=== PATIENT | female | born 1945 | race Caucasian/White ===

== ENCOUNTER 2016-06-22 06:35 | Inpatient (IN) | payer OTHER, MEDICARE ==
[2016-06-22] VITALS (29 sets, daily range): BP systolic 107–152; BP diastolic 54–66; PULSE 55–82; RESP 16–80; Ht 162.6 cm; Wt 85.0 kg
[~2016-06-22] VITALS: Ht 162.6 cm; Wt 85.0 kg
[~2016-06-22 06:35] MED LIST: CEFAZOLIN 2 GM/50 ML (PMX) 50 ML IVPB ONE
--- NOTE | 2016-06-22 06:43 | HPN ---
Date/Time of Note Date/Time of Note DATE: 06/22/16 TIME: 06:42 Interval H&P Admission Note Pt. seen H&P reviewed: No system changes KRISTAL GAGNON MD Jun 22, 2016 06:42
[2016-06-22] MEDS ORDERED: DESFLURANE 15 MIN ONE (07:00)
[2016-06-22] MEDS ORDERED: CEFAZOLIN 1 GM INJ ONE (07:00)
--- NOTE | 2016-06-22 07:35 | PREOPHP ---
DATE OF ADMISSION: 06/22/2016 HISTORY OF PRESENT ILLNESS: Misty Das is a 70-year-old female scheduled for elec tive right total hip arthroplasty by Dr. Louis at [facility]. The patient has h ad increasing symptoms of right hip pain secondary to osteoarthritis and degenerative disease, intra ctable pains over the last few weeks. The patient has consulted a banana loader at [facility], and she has been cleared for surgery. PAST MEDICAL HISTORY: 1. Type 2 diabetes mellitus. 2. Systemic hypertension. 3. Hyperlipidemia. 4. Anxiety disorder. SURGICAL HISTORY: 1. Hysterectomy. 2. Tonsillectomy and adenoidectomy. 3. Blepharoplasty. 4. Right wrist cyst excision. 5. Hyperlipidemia. MEDICATIONS: 1. Metformin XR one gram b.i.d. 2. Starlix 120 mg before meals. 3. Toujeo ____ insulin 30 units at bedtime. 4. Humalog sliding scale pre-meal. 5. Crestor 10 mg daily. 6. Wellbutrin SR 150 mg daily. 7. Zoloft 50 mg daily. 8. Xanax 2.5 mg b.i.d. p.r.n. SOCIAL HISTORY: Former smoker, discontinued in 1975. No ETOH. REVIEW OF SYSTEMS: CONSTITUTIONAL: No fever or chills. Moderate weight loss over the last one year, voluntary. No ni ght sweats, no fatigue. CARDIOVASCULAR: No chest pains, no orthopnea, no PND, no edema of extremities, no palpitations, no claudication symptoms, no history of syncope. GI: No abdominal pain. No nausea or vomiting, no diarrhea, no melena or hematochezia. MUSCULOSKELETAL: Intractable right hip pain as noted in history of present illness. HEMATOLOGICAL: No bruising, no history of transfusions, no lymphadenopathy. NEUROLOGIC: No headaches, no weakness, no seizure disorder, no history of CVA. ALLERGIES: NO KNOWN DRUG ALLERGIES. PHYSICAL EXAMINATION: VITAL SIGNS: Blood pressure 114/70, pulse rate ____ and regular, respiratory rate 16 per minute. Afebrile. Weight 190 pounds. Height 5 feet 4 inches. HEAD: Normocephalic and atraumatic. HEENT: Pupils equal and reactive to light bilaterally. Extraocular movements intact. No scleral i cterus. No nasal deformity. Oropharynx is clear. External ears are normal. NECK: Supple, no bruit, no adenopathy. LUNGS: Clear to auscultation bilaterally. HEART: Regular rate, I/ aortic systolic murmur. No gallop or rub. No heave. ABDOMEN: No distention. Soft, nontender, no organomegaly, no palpable mass. EXTREMITIES: No edema. No cyanosis. There are 2+ pedal pulses bilaterally. SKIN: No rash. SPINE: No deformity or tenderness. NEUROLOGICAL: Alert and oriented. Adequate strength in all extremities. No focal changes. ASSESSMENT: 1. Significant progressive degenerative disease of the right hip with intractable pain. 2. Type 2 diabetes mellitus. 3. Systemic hypertension. 4. Hyperlipidemia. 5. Anxiety disorder. The patient consulted her banana loader at [facility] in [place]. Cardiology consultation report has been forwarded to Dr. Louis. The patient noted to have mild to moderate aortic regurgitation on echocardiogram- asymptomatic. Normal myocardial perfusion scan per banana loader. PLAN: Review preoperative laboratory tests and chest x-ray prior to final clearance for surgery. Advised to discontinue metformin 1 day prior to surgery. Advised to decrease Toujeo to 10 units on 06/21/2016 if her ____ blood sugar is greater than 150. N o Toujeo if glucose below 150, as the patient will be n.p.o. on 06/22/2016. The patient is at moderate cardiovascular risk for monitored surgery. No additional optimization fr om cardiovascular standpoint. ADDENDUM: I am requesting that Dr. David Cardona follow the patient postoperative at [facility]. DICTATED BY DR.JAGANATH AMAYA FOR KRISTAL LOUIS MD Dictated By: KRISTAL LOUIS MD CG/NTS Conf#: [id number] DID#: [id number] CC: DAVID CARDONA MD; JAVED AMAYA MD;*EndCC*
[2016-06-22] MEDS ORDERED: CARV80CP5 PO (07:37)
[2016-06-22] MEDS ORDERED: AMLO-147 PO (07:37)
[2016-06-22] MEDS ORDERED: RAMI10CA35 PO (07:38)
[2016-06-22] MEDS ORDERED: METF-406 PO (07:40)
[2016-06-22] MEDS ORDERED: INSU300I SQ (07:41)
[2016-06-22] MEDS ORDERED: INSU200I SQ (07:42)
[2016-06-22] MEDS ORDERED: CRES10 PO (07:43)
[2016-06-22] MEDS ORDERED: NATE120T PO (07:43)
[2016-06-22] MEDS ORDERED: BUPR150T18 PO (07:44)
[2016-06-22] MEDS ORDERED: SERT50TA6 PO (07:45)
[2016-06-22] MEDS ORDERED: ALPR0.25 PO (07:45)
[2016-06-22] MEDS ORDERED: ASPI-664 PO (07:47)
[2016-06-22] MEDS ORDERED: OMEG-53 PO (07:48)
[2016-06-22] MEDS ORDERED: CHOL100062 PO (07:48)
[2016-06-22] MEDS ORDERED: CALC600T11 PO (07:49)
[2016-06-22] MEDS ORDERED: VITA150T PO (07:50)
[2016-06-22] MEDS ORDERED: ASCO500C7 PO (07:50)
[2016-06-22] MEDS ORDERED: BIOT1CAP3 PO (07:51)
[2016-06-22] MEDS ORDERED: LACT1CAP57 PO (07:51)
[2016-06-22] MEDS ORDERED: GABAPENTIN 300 MG CAP PO ONE (07:59)
[2016-06-22] MEDS ORDERED: oxyCODONE (CR) 10 MG TAB [oxyCONTIN] PO ONE (07:59)
[2016-06-22] MEDS ORDERED: traMADol 50 MG TAB PO ONE (07:59)
[2016-06-22] MEDS ORDERED: DEXAMETHASONE 1 MG TAB PO ONE (08:00)
[2016-06-22] MEDS ORDERED: TRANEXAMIC ACID 1,000 MG in SOD CHLORIDE 0.9% 100 ML IVPB ONE (08:00)
[2016-06-22] MEDS ORDERED: BUPIVACAINE 0.5% (SDV) 30 ML, morphine SULFATE (PF) 8 MG, EPINEPHrine 0.3 MG, KETOROLAC... IRR SCH ×7 (08:03)
[2016-06-22] MEDS ORDERED: CEFAZOLIN 2 GM/50 ML (PMX) 50 ML IVPB ONE (08:30)
[2016-06-22] MEDS ORDERED: morphine SULFATE/PF (10 MG/10 ML) INJ ONE (09:37)
[2016-06-22] MEDS ORDERED: CA CHLORIDE 10% 10 ML SYRINGE ONE (09:45)
[2016-06-22] MEDS ORDERED: THROMBIN 5000 UNIT VIAL ONE (09:45)
[2016-06-22] MEDS ORDERED: TRANEXAMIC ACID 1,000 MG in SOD CHLORIDE 0.9% 100 ML IV ONE ×2 (10:00→12:30)
[2016-06-22] MEDS ORDERED: ROCURONIUM 50 MG INJ ONE (10:13)
[2016-06-22] MEDS ORDERED: LIDOCAINE 2% (SDV) 5 ML INJ ONE (10:13)
[2016-06-22] MEDS ORDERED: SUCCINYLCHOLINE CHLORIDE 100 MG/5 ML SYG IV ONE (10:13)
[2016-06-22] MEDS ORDERED: NEOSTIGMINE 3 MG/3 ML SYRINGE ONE (10:13)
[2016-06-22] MEDS ORDERED: PROPOFOL 20 ML ONE (10:13)
[2016-06-22] MEDS ORDERED: GLYCOPYRROLATE 0.4 MG INJ ONE (10:13)
[2016-06-22] MEDS ORDERED: POLYMYXIN/BACITRACIN 1L IRRIG ONE (10:28)
[2016-06-22] MEDS ORDERED: POLYMYXIN/BACITRACIN 1L IRRIG IRR ONE (10:28)
[2016-06-22] MEDS ORDERED: ONDANSETRON 4 MG INJ IV PRN ×2 (10:30→12:00)
[2016-06-22] MEDS ORDERED: HYDROmorphONE (0.2 MG/ML) 10ML SYG IV PRN ×3 (10:30)
[2016-06-22] MEDS ORDERED: METOCLOPRAMIDE 10 MG INJ IV PRN (10:30)
[2016-06-22] MEDS ORDERED: DIPHENHYDRAMINE 50 MG INJ IV PRN ×2 (10:30→12:00)
[2016-06-22] MEDS ORDERED: MEPERIDINE 25 MG INJ IV PRN (10:30)
[2016-06-22] MEDS ORDERED: FENTAnyl 50 MCG/ML VIAL IV PRN (10:30)
[2016-06-22] MEDS ORDERED: KETOROLAC 15 MG INJ IV PRN (12:00)
[2016-06-22] MEDS ORDERED: morphine 2 MG INJ IV PRN (12:00)
[2016-06-22] MEDS ORDERED: MAGNESIUM HYDROXIDE 30ML CUP PO PRN (12:00)
[2016-06-22] MEDS ORDERED: OXYCODONE/ACETAMINOPHEN (5/325) TAB PO PRN ×2 (12:00)
[2016-06-22] MEDS ORDERED: ACETAMINOPHEN 500 MG TAB PO PRN (12:00)
[2016-06-22] MEDS ORDERED: ZOLPIDEM 5 MG TAB PO PRN (12:00)
[2016-06-22] MEDS: DEXAMETHASONE 2 MG TAB PO SCH ×3 (12:00→23:54)
[2016-06-22] MEDS ORDERED: morphine 4 MG/ML VIAL IV PRN (12:00)
[2016-06-22] MEDS ORDERED: BETHANECHOL 25 MG TAB PO PRN (12:00)
[2016-06-22] MEDS: CEFAZOLIN 1 GM/50 ML (PMX) 50 ML IVPB SCH ×2 (12:00→19:37)
[2016-06-22] MEDS ORDERED: CEFAZOLIN 1 GM/50 ML (PMX) 50 ML IVPB ONE (12:16)
[2016-06-22 12:25] LABS: ADD SCAN DIFF NO
[2016-06-22 12:26] LABS: BASOPHILS % 0.3 % (0.0-2.0); EOSINOPHILS # 0.1 10^3/ul (0.0-0.5); EOSINOPHILS % 0.6 % (0.0-7.0); HEMATOCRIT 33.3 % (37.0-47.0); HEMOGLOBIN 10.9 g/dl (12.0-16.0); LYMPHOCYTES # 1.4 10^3/ul (0.8-2.9); MEAN CORPUSCULAR HEMOGLOBIN 29.9 pg (29.0-33.0); MEAN CORPUSCULAR HGB CONC 32.7 g/dl (32.0-37.0); MEAN CORPUSCULAR VOLUME 91.2 fl (82.0-101.0); MEAN PLATELET VOLUME 10.5 fl (7.4-10.4); MONOCYTE # 0.3 10^3/ul (0.3-0.9); MONOCYTES % 2.9 % (0.0-11.0); NEUTROPHIL # 8.1 10^3/ul (1.6-7.5); NEUTROPHILS % 80.9 % (39.0-77.0); PLATELET COUNT 216 10^3/UL (140-415); RED BLOOD COUNT 3.65 10^6/ul (4.20-5.40); RED CELL DISTRIBUTION WIDTH 13.4 % (11.5-14.5)
--- NOTE | 2016-06-22 12:34 | OPR ---
DATE OF OPERATION: 06/22/2016 SURGEON: Kristal Louis MD LUMBER SALVAGER: Kyle Garrett MD PREOPERATIVE DIAGNOSIS: Right hip primary osteoarthritis. POSTOPERATIVE DIAGNOSIS: Right hip primary osteoarthritis. OPERATION PERFORMED: Right total hip arthroplasty. Case Therapist surgeon, Kyle Garrett MD, was asked to be present at my request as a result of significa nt surgical complexity associated with this procedure, including positioning of the extremity, manip ulation and protection of the neurovascular structures. In my opinion, the assistance offered by a surgical assist is insufficient, and Dr. Garrett should be compensated for his time. PROCEDURE IN DETAIL: Following administration of general endotracheal anesthesia supplemented with a spinal, and the placement of a sterile Hamilton catheter, the patient was placed in supine position. The right lower extremity was prepped and draped in usual sterile fashion. An incision was then ma de laterally over the tensor. The tensor was incised and retracted laterally. Prior to opening the joint, a C-arm shot was then obtained to evaluate for limb length and size. The tensor was retracted. The anterior capsule was exposed. A longitudinal capsulotomy was then pe rformed, exposing the severe arthritis in the joint. A femoral neck cut was then made in the approp riate degree of version and inclination. The femoral head was then extracted and severe arthritic c hanges were noted. The acetabulum was then reamed. Severe arthritic changes were noted also, reami ng after capsulectomy and labrectomy. A 54 mm [place] cup was seen to be the best fit. A 20 mm sc rew was used for secondary fixation with a standard liner. Very solid fixation was obtained. Attention was then directed back to the femur, a 10 mm [place] stem was seen to be the best fit. The [place] stem was then inserted with a standard head and a zirconium head. Good range of motion was noted with no instability. Radiographs revealed good position of the components as well as limb ekta gth within 5 mm. The joint was then thoroughly irrigated, closed in layers. A Prineo dressing was used for final closure. The patient was then awakened, extubated, transported to recovery room in s table condition. Estimated blood loss for this procedure was 400 mL. Postoperative x-rays and CBC will be obtained in the recovery room. Dictated By: KRISTAL SHUKLA/NTS Conf#: [id number] [facility]#: [id number]
[2016-06-22] MEDS: LACTATED RINGER'S 1,000 ML IV SCH ×2 (14:13→21:53)
[2016-06-22] MEDS ORDERED: DC GLYBURIDE, GLIPIZIDE,GLIMEPIRIDE AND PREVIOUS INSULIN ORDERS XX SCH (14:30)
[2016-06-22] MEDS ORDERED: GLUCAGON 1 MG INJ IM PRN ×2 (14:30)
[2016-06-22] MEDS ORDERED: GLUCOSE GEL 15 GRAM TUBE PO PRN ×4 (14:30)
[2016-06-22] MEDS ORDERED: DO NOT FORGET TO ENTER HYPOGLYCEMIC PROTOCOL XX SCH (14:30)
[2016-06-22] MEDS ORDERED: GLUCOSE GEL 15 GRAM TUBE BUCCAL PRN ×2 (14:30)
[2016-06-22] MEDS ORDERED: DEXTROSE 50% 50 ML SYRINGE IV PRN ×4 (14:30)
--- NOTE | 2016-06-22 15:27 | RADRPT ---
PROCEDURE: X-ray fluoroscopy guidance CLINICAL INDICATION: Right hip replacement, fluoroscopic guidance. TECHNIQUE: Fluoroscopic guidance was utilized for an intraoperative procedure. COMPARISON: None available FINDINGS: Fluoroscopic guidance was utilized for and intraoperative procedure. 50 seconds of fluoroscopy time was utilized for the procedure. 10 x-ray images were obtained during the procedure in progress. Pros thetic components appear in grossly appropriate position and alignment. IMPRESSION: X-ray fluoroscopic guidance utilized for intraoperative procedure. Prosthetic components appear in grossly appropriate position and alignment. Please see procedure note for details. RPTAT: AA .Bertin Crocker MD, Date Time Electronically viewed and signed by .Bertin Crocker MD, on 06/22/2016 15:26 .P/
--- NOTE | 2016-06-22 15:28 | RADRPT ---
PROCEDURE: XR Pelvis. CLINICAL INDICATION: Status post right hip replacement. TECHNIQUE: Single AP view of the pelvis. COMPARISON: No prior studies are available for comparison. FINDINGS: Right hip replacement is identified. The prosthetic components are in appropriate position and alig nment. Moderate to severe narrowing of the left hip joint is seen. No destructive bony lesions are observed. The interosseous spaces are unremarkable. A small amount of soft tissue air is procedur al in nature. Hamilton catheter is noted in the pelvis. IMPRESSION: Right hip replacement. Prosthetic components are in appropriate position and alignment. Moderate to severe osteoarthritis of the left hip. RPTAT: AA .Bertin Crocker MD, MD Date Time Electronically viewed and signed by .Bertin Crocker MD, on 06/22/2016 15:28 .P/
[2016-06-22] MEDS ORDERED: INSULIN LISPRO U SQ SCH (17:25)
[2016-06-22] MEDS: Insulin NOVOLOG SS MILD Algorithm (SS with meals and bedtime) SC SCH (17:25)
[2016-06-22] MEDS: NATEGLINIDE 120 MG TAB PO SCH (17:45)
[2016-06-22] MEDS ORDERED: metFORMIN (XR) 500 MG TAB PO SCH (17:55)
[2016-06-22] MEDS: SENNA/DOCUSATE NA (8.6MG/50MG) TAB PO SCH (20:45)
[2016-06-22] MEDS: SERTRALINE 50 MG TAB PO SCH (20:48)
[2016-06-22] MEDS: BENAZEPRIL 40 MG TAB PO SCH (20:48)
[2016-06-22] MEDS ORDERED: ATORVASTATIN 40 MG TAB PO SCH (21:00)
[2016-06-22] MEDS ORDERED: INSULIN GLARGINE [LANtus] 3 ML PEN SC SCH (21:00)
[2016-06-22] MEDS ORDERED: GABAPENTIN 300 MG CAP PO SCH (21:00)
[2016-06-23] MEDS: LACTATED RINGER'S 1,000 ML IV SCH ×2 (03:44→07:53)
[2016-06-23] MEDS: CEFAZOLIN 1 GM/50 ML (PMX) 50 ML IVPB SCH (03:45)
[2016-06-23 05:20] VITALS: BP 115/62; PULSE 58; RESP 18
[2016-06-23 05:25] LABS: ADD SCAN DIFF NO
[2016-06-23 05:29] LABS: BASOPHILS % 0.2 % (0.0-2.0); HEMATOCRIT 30.7 % (37.0-47.0); HEMOGLOBIN 9.6 g/dl (12.0-16.0); LYMPHOCYTES # 1.4 10^3/ul (0.8-2.9); LYMPHOCYTES % 11.1 % (15.0-51.0); MEAN CORPUSCULAR HEMOGLOBIN 28.6 pg (29.0-33.0); MEAN CORPUSCULAR HGB CONC 31.3 g/dl (32.0-37.0); MEAN CORPUSCULAR VOLUME 91.4 fl (82.0-101.0); MEAN PLATELET VOLUME 10.8 fl (7.4-10.4); MONOCYTE # 0.8 10^3/ul (0.3-0.9); MONOCYTES % 6.4 % (0.0-11.0); NEUTROPHIL # 10.1 10^3/ul (1.6-7.5); NEUTROPHILS % 81.7 % (39.0-77.0); PLATELET COUNT 196 10^3/UL (140-415); RED BLOOD COUNT 3.36 10^6/ul (4.20-5.40); RED CELL DISTRIBUTION WIDTH 13.4 % (11.5-14.5); WHITE BLOOD COUNT 12.4 10^3/ul (4.8-10.8)
[2016-06-23] MEDS: DEXAMETHASONE 2 MG TAB PO SCH (05:33)
--- NOTE | 2016-06-23 06:43 | PN ---
Date/Time of Note Date/Time of Note DATE: 06/23/16 TIME: 06:42 24 hour Interval Summary Patient is awake and alert. She is tolerating oral intake well. Physical examination: Her wound is clean and dry. She is neurologically intact. She has no signs of DVT. Impression: Status post total hip replacement Plan: She will begin ambulating this morning. She will be discharged when she is cleared by physical therapy. Physical Exam Vital Signs Date Time Temp Pulse Resp B/P Pulse Ox O2 Delivery O2 Flow Rate FiO2 06/23/16 05:20 98.2 58 18 115/62 100 Nasal Cannula 2.0 Intake and Output 06/22/16 06/22/16 06/23/16 15:00 23:00 07:00 Intake Total 1400 ml 495 ml 2350 ml Output Total 360 ml 350 ml 1950 ml Balance 1040 ml 145 ml 400 ml VTE Prophylaxis VTE Prophylaxis Intervention: anti-embolic stocking Lines/Catheters IV Catheter Type: Saline Lock Hamilton in Place: No Results Result Diagram: 06/23/16 0458 Results 24hrs Laboratory Tests Test 06/22/16 07:51 06/22/16 12:20 06/22/16 17:38 06/22/16 20:08 Bedside Glucose 141 123 179 White Blood Count 10.0 Red Blood Count 3.65 L Hemoglobin 10.9 L Hematocrit 33.3 L Mean Corpuscular Volume 91.2 Mean Corpuscular Hemoglobin 29.9 Mean Corpuscular Hemoglobin Concent 32.7 Red Cell Distribution Width 13.4 Platelet Count 216 Mean Platelet Volume 10.5 H Neutrophils % 80.9 H Lymphocytes % 14.0 L Monocytes % 2.9 Eosinophils % 0.6 Basophils % 0.3 Nucleated Red Blood Cells % 0.0 Neutrophils # 8.1 H Lymphocytes # 1.4 Monocytes # 0.3 Eosinophils # 0.1 Basophils # 0.0 Nucleated Red Blood Cells # 0.0 Test 06/23/16 04:58 White Blood Count 12.4 #H Red Blood Count 3.36 L Hemoglobin 9.6 L Hematocrit 30.7 L Mean Corpuscular Volume 91.4 Mean Corpuscular Hemoglobin 28.6 L Mean Corpuscular Hemoglobin Concent 31.3 L Red Cell Distribution Width 13.4 Platelet Count 196 Mean Platelet Volume 10.8 H Neutrophils % 81.7 H Lymphocytes % 11.1 L Monocytes % 6.4 Eosinophils % 0.0 Basophils % 0.2 Nucleated Red Blood Cells % 0.0 Neutrophils # 10.1 H Lymphocytes # 1.4 Monocytes # 0.8 Eosinophils # 0.0 Basophils # 0.0 Nucleated Red Blood Cells # 0.0 Medications Medications Home Meds Reported Medications Lactobacillus Rhamnosus* (Culturelle*) 1 Each Cap.sprink, 1 CAP PO DAILY, CAP 06/22/16 Biotin (BIOTIN) 1 Mg Capsule, 1 MG PO DAILY, CAP 06/22/16 Vitamin B Complex & Vit C No.4 (Super B Complex) 150 Mg Tablet, 150 MG PO DAILY , TAB 06/22/16 Ascorbic Acid* (Vitamin C*) 500 Mg Capsule.sa, 500 MG PO DAILY, CAP 06/22/16 Calcium Carbonate* (Calcium Carbonate*) 600 MG Ca Tab, 600 MG PO DAILY, TAB 06/22/16 Cholecalciferol* (Vitamin D3*) 1,000 Unit Tablet, 2000 UNIT PO DAILY, TAB 06/22/16 [place]-3/Dha/Epa/Fish Oil (FISH OIL 500 MG SOFTGEL) 1 Each Capsule, 2 EACH PO DAILY, CAP 06/22/16 Aspirin (Low Dose Aspirin) 81 Mg Tablet.dr, 81 MG PO DAILY, #30 TAB 06/22/16 Sertraline Hcl* (Sertraline Hcl*) 50 Mg Tablet, 50 MG PO BID, #30 TAB 06/22/16 Alprazolam* (Xanax*) 0.25 Mg Tablet, 0.25 MG PO PRN Y for ANXIETY, TAB 06/22/16 Bupropion Hcl* (Bupropion Hcl SR*) 150 Mg Tablet.er, 150 MG PO DAILY, TAB.SA 06/22/16 Rosuvastatin Calcium* (Crestor*) 10 Mg Tablet, 10 MG PO QHS, #30 TAB 06/22/16 Nateglinide* (Nateglinide*) 120 Mg Tablet, 120 MG PO AC MEALS, TAB 06/22/16 Insulin Lispro (Humalog Kwikpen) 200 Unit/1 Ml Insuln.pen, 0 SQ AC MEALS, EA SLIDING SCALE NO SCALE PROVIDED 06/22/16 Insulin Glargine,Hum.rec.anlog (Toutreo Solostar) 300 Unit/1 Ml Insuln.pen, 30 UNIT SQ QHS 06/22/16 Metformin Hcl* (Metformin Hcl* ER) 1,000 Mg Tab.er.24, 1000 MG PO BID, #30 TAB 06/22/16 Ramipril (Altace) 10 Mg Capsule, 10 MG PO BID, CAP 06/22/16 Carvedilol* (Coreg CR*) 80 Mg Cpmp.24hr, 80 MG PO DAILY, #30 CAP 06/22/16 Amlodipine Besylate* (Amlodipine Besylate*) 10 Mg Tablet, 10 MG PO DAILY, #30 TAB 06/22/16 KRISTAL GAGNON MD Jun 23, 2016 06:43
--- NOTE | 2016-06-23 06:44 | DS ---
Date/Time of Note Date/Time of Note DATE: 06/23/16 TIME: 06:43 Discharge Summary Admission/Discharge Info Admit Date/Time Jun 22, 2016 at 06:35 Discharge Date/Time June 23, 2016 following clearance by physical therapy Final Diagnosis Right hip osteoarthritis Patient Condition: Good Procedures Right total hip arthroplasty Hx of Present Illness Chronic pain and stiffness in the right hip Hospital Course Patient was admitted and underwent an uncomplicated total hip replacement. Postoperatively, she was ambulated. Postoperative H&H were normal. She is to be discharged and followed up in the office in 2 weeks. Home Meds Reported Medications Lactobacillus Rhamnosus* (Culturelle*) 1 Each Cap.sprink, 1 CAP PO DAILY, CAP 06/22/16 Biotin (BIOTIN) 1 Mg Capsule, 1 MG PO DAILY, CAP 06/22/16 Vitamin B Complex & Vit C No.4 (Super B Complex) 150 Mg Tablet, 150 MG PO DAILY , TAB 06/22/16 Ascorbic Acid* (Vitamin C*) 500 Mg Capsule.sa, 500 MG PO DAILY, CAP 06/22/16 Calcium Carbonate* (Calcium Carbonate*) 600 MG Ca Tab, 600 MG PO DAILY, TAB 06/22/16 Cholecalciferol* (Vitamin D3*) 1,000 Unit Tablet, 2000 UNIT PO DAILY, TAB 06/22/16 [place]-3/Dha/Epa/Fish Oil (FISH OIL 500 MG SOFTGEL) 1 Each Capsule, 2 EACH PO DAILY, CAP 06/22/16 Aspirin (Low Dose Aspirin) 81 Mg Tablet.dr, 81 MG PO DAILY, #30 TAB 06/22/16 Sertraline Hcl* (Sertraline Hcl*) 50 Mg Tablet, 50 MG PO BID, #30 TAB 06/22/16 Alprazolam* (Xanax*) 0.25 Mg Tablet, 0.25 MG PO PRN Y for ANXIETY, TAB 06/22/16 Bupropion Hcl* (Bupropion Hcl SR*) 150 Mg Tablet.er, 150 MG PO DAILY, TAB.SA 06/22/16 Rosuvastatin Calcium* (Crestor*) 10 Mg Tablet, 10 MG PO QHS, #30 TAB 06/22/16 Nateglinide* (Nateglinide*) 120 Mg Tablet, 120 MG PO AC MEALS, TAB 06/22/16 Insulin Lispro (Humalog Kwikpen) 200 Unit/1 Ml Insuln.pen, 0 SQ AC MEALS, EA SLIDING SCALE NO SCALE PROVIDED 06/22/16 Insulin Glargine,Hum.rec.anlog (Roberto Carloscarloslexus Trinidadparag) 300 Unit/1 Ml Insuln.pen, 30 UNIT SQ QHS 06/22/16 Metformin Hcl* (Metformin Hcl* ER) 1,000 Mg Tab.er.24, 1000 MG PO BID, #30 TAB 06/22/16 Ramipril (Altace) 10 Mg Capsule, 10 MG PO BID, CAP 06/22/16 Carvedilol* (Coreg CR*) 80 Mg Cpmp.24hr, 80 MG PO DAILY, #30 CAP 06/22/16 Amlodipine Besylate* (Amlodipine Besylate*) 10 Mg Tablet, 10 MG PO DAILY, #30 TAB 06/22/16 Pending Labs Laboratory Tests Test 06/22/16 07:51 06/22/16 12:20 06/22/16 17:38 06/22/16 20:08 Bedside Glucose 141mg/dL (70-220) 123mg/dL (70-220) 179mg/dL (70-220) White Blood Count 10.010^3/ul (4.8-10.8) Red Blood Count 3.6510^6/ul (4.20-5.40) Hemoglobin 10.9g/dl (12.0-16.0) Hematocrit 33.3% (37.0-47.0) Mean Corpuscular Volume 91.2fl (82.0-101.0) Mean Corpuscular Hemoglobin 29.9pg (29.0-33.0) Mean Corpuscular Hemoglobin Concent 32.7g/dl (32.0-37.0) Red Cell Distribution Width 13.4% (11.5-14.5) Platelet Count 82774^3/UL (140-415) Mean Platelet Volume 10.5fl (7.4-10.4) Neutrophils % 80.9% (39.0-77.0) Lymphocytes % 14.0% (15.0-51.0) Monocytes % 2.9% (0.0-11.0) Eosinophils % 0.6% (0.0-7.0) Basophils % 0.3% (0.0-2.0) Nucleated Red Blood Cells % 0.0/100WBC (0.0-0.0) Neutrophils # 8.110^3/ul (1.6-7.5) Lymphocytes # 1.410^3/ul (0.8-2.9) Monocytes # 0.310^3/ul (0.3-0.9) Eosinophils # 0.110^3/ul (0.0-0.5) Basophils # 0.010^3/ul (0.0-0.1) Nucleated Red Blood Cells # 0.010^3/ul (0.0-0.0) Test 06/23/16 04:58 White Blood Count 12.410^3/ul (4.8-10.8) Red Blood Count 3.3610^6/ul (4.20-5.40) Hemoglobin 9.6g/dl (12.0-16.0) Hematocrit 30.7% (37.0-47.0) Mean Corpuscular Volume 91.4fl (82.0-101.0) Mean Corpuscular Hemoglobin 28.6pg (29.0-33.0) Mean Corpuscular Hemoglobin Concent 31.3g/dl (32.0-37.0) Red Cell Distribution Width 13.4% (11.5-14.5) Platelet Count 75551^3/UL (140-415) Mean Platelet Volume 10.8fl (7.4-10.4) Neutrophils % 81.7% (39.0-77.0) Lymphocytes % 11.1% (15.0-51.0) Monocytes % 6.4% (0.0-11.0) Eosinophils % 0.0% (0.0-7.0) Basophils % 0.2% (0.0-2.0) Nucleated Red Blood Cells % 0.0/100WBC (0.0-0.0) Neutrophils # 10.110^3/ul (1.6-7.5) Lymphocytes # 1.410^3/ul (0.8-2.9) Monocytes # 0.810^3/ul (0.3-0.9) Eosinophils # 0.010^3/ul (0.0-0.5) Basophils # 0.010^3/ul (0.0-0.1) Nucleated Red Blood Cells # 0.010^3/ul (0.0-0.0) KRISTAL GAGNON MD Jun 23, 2016 06:44
--- NOTE | 2016-06-23 06:45 | PDOCDIS ---
Discharge Instructions DIAGNOSIS Discharge Diagnosis: Hip arthritis CONDITION Patient Condition: Good HOME CARE INSTRUCTIONS: Diet Instructions: Regular ACTIVITY: Activity Restrictions: Slowly Increase Activity Keep Limb Elevated Bathing Restrictions: Shower FOLLOW UP/APPOINTMENTS Appointments 2 weeks SCHOOL/WORK RELEASE May return to School/Work with: With Restrictions School/Work Release Comment: No hip extension for 6 weeks per KRISTAL GAGNON MD Jun 23, 2016 06:45
[2016-06-23] MEDS: Insulin NOVOLOG SS MILD Algorithm (SS with meals and bedtime) SC SCH (07:20)
[2016-06-23 07:58] VITALS: BP 126/60; RESP 19
[2016-06-23] MEDS: NATEGLINIDE 120 MG TAB PO SCH (08:48)
[2016-06-23] MEDS: SENNA/DOCUSATE NA (8.6MG/50MG) TAB PO SCH (08:48)
[2016-06-23] MEDS: SERTRALINE 50 MG TAB PO SCH (08:48)
[2016-06-23] MEDS: BENAZEPRIL 40 MG TAB PO SCH (08:49)
[2016-06-23] MEDS ORDERED: AMLODIPINE 10 MG TAB PO SCH (09:00)
[2016-06-23] MEDS ORDERED: BUPROPION (SR) 150 MG TAB PO SCH (09:00)
[2016-06-23] MEDS ORDERED: CARVEDILOL (CR) 80 MG CAP PO SCH (09:00)
[2016-06-23] MEDS ORDERED: ASPIRIN (EC) 325 MG TAB PO SCH (09:00)
--- NOTE | 2016-06-23 09:22 | CONS ---
DATE OF ADMISSION: 06/22/2016 DATE OF CONSULTATION: INTERNAL MEDICINE CONSULTATION Dear Dr. Louis, Thank you very much for asking me to evaluate Ms. Das from a medical standpoint. I had discusse d her history and her prior workup with PMD, Dr. Alcazar, yesterday, detailed history was obtained fro m the patient, and patient was examined. She is a 70-year-old lady with severe right hip degenerati ve joint disease who failed conservative management. The patient was admitted yesterday for right t otal hip arthroplasty. The patient was seen postoperatively. PAST MEDICAL HISTORY: Significant for history of type 2 diabetes mellitus for the last 10 years, es sential hypertension, hyperlipidemia, and history of anxiety disorder. FAMILY HISTORY: Mother in her 40s after complication from bypass surgery. No history of colon or breast cancer. REVIEW OF SYSTEMS: HEAD: No history of headaches, focal weakness, or numbness. EYES: No blurry vision or glaucoma. ENT: Noncontributory. NECK: No history of thyroid disease. CHEST: No bronchitis, hay fever, or asthma. The patient smoked for about 15 years and in the early 70s. CARDIOVASCULAR: No PND, orthopnea, palpitations. The patient had been seen by safety physician at [facility] , underwent some kind of stress testing, and had been cleared for surgery. History of aortic stenos is. GASTROINTESTINAL: No constipation, diarrhea, change of bowel habits. Had a colonoscopy several yea rs ago which was negative. GENITOURINARY: No dysuria, hematuria, kidney stones. The patient had a mammogram and a gynecology exam recently as well. PRIOR SURGERIES: Include hysterectomy, blepharoplasty, tonsillectomy. GENERAL: No history of weight loss or weight gain. Sleep normal. No history of sleep apnea. SKIN: No history of any skin lesions. PHYSICAL EXAMINATION: GENERAL: The patient is an average-built female who is presently in no acute distress. VITAL SIGNS: Blood pressure 126/60, respiration 20 per minute. HEENT: Head normocephalic. No pallor, cyanosis, or icterus. Tongue is moist. NECK: Supple. No thyromegaly, bruits, or lymphadenopathy. LUNGS: Clinically clear. HEART: S1, S2 heard with no definite gallops or murmurs with grade II/ midsystolic murmur. ABDOMEN: Obese, nontender, no hepatosplenomegaly. EXTREMITIES: No edema. Homans sign is negative. NEUROLOGIC: No localizing or lateralizing signs. PELVIC/RECTAL: Deferred at patient's request. LABORATORY DATA: Initial WBC count 10.0, hematocrit 33.3, platelet count 216,000. Glucose since night 141, 123, 179, 149. X-ray of the pelvis shows status post right hip replacement and severe osteoarthritis of the left hip. IMPRESSION: 1. Severe degenerative joint disease of bilateral hips status post right total hip arthroplasty. 2. Diabetes mellitus type 2, well controlled. 3. Hypertension, well controlled. 4. Hyperlipidemia. 5. Mild anemia, etiology undetermined. PLAN: The patient's overall medical condition is stable. We will closely monitor hemoglobin and he matocrit and obtain further studies. Likely secondary to postoperative state. Recommend following up CBC over the course of next week. Continue close monitoring of blood glucose levels. The patient appears to be medically stable at the present time. Dictated By: ARTURO LUO MD, SR/CARLO Conf#: [id number] DID#: [id number]
[2016-06-23 09:38] LABS: CALCIUM 8.9 mg/dl (8.4-10.2); CREATININE 0.77 mg/dl (0.44-1.00); POTASSIUM 4.9 mmol/L (3.5-5.1)
== END 2016-06-23 12:05 | disposition home or self-care (01) | DRG 470 ==
LOC: REC 06:35 → MS1 13:27
PROVIDERS: ADMIT Orthopaedic Surgery; ATTEND Orthopaedic Surgery
PROC: 0SR904A Replacement of Right Hip Joint with Ceramic on Polyethylene Synthetic Substitute, Uncemented, Open Approach (ICD-10-PCS; principal; 2016-06-22 09:30)
DX: M16.11 Unilateral primary osteoarthritis, right hip (principal); I10 Essential (primary) hypertension; E11.9 Type 2 diabetes mellitus without complications; E78.5 Hyperlipidemia, unspecified; D64.9 Anemia, unspecified; F41.9 Anxiety disorder, unspecified
CPT/HCPCS: 72170; 73530; 80048; 82962; 85025; 86999; 97162; Z7610; C1776; J0171; J0330; J0690; J0735; J1815; J1885; J2274; J2710; J3370; J7120